=== PATIENT | male | born 1965 | race Caucasian/White ===

== ENCOUNTER 2018-01-04 16:57 | Outpatient (CLI) | END 2018-01-04 16:58 | disposition home or self-care (01) | LOC: FCC-LAB 16:57 | PROVIDERS: ATTEND General Practice | DX: D64.9 Anemia, unspecified (principal) | CPT/HCPCS: 82272 ==

== ENCOUNTER 2019-02-02 13:24 | Emergency (ER) ==
[2019-02-02 13:38] VITALS: TEMP 97.5; BMI 24.1
[2019-02-02] MEDS ORDERED: MORPHINE 4 MG/ML SYRINGE IM STA (13:39)
[2019-02-02] MEDS ORDERED: ZOFRAN 4 MG/2 ML IM STA (13:39)
[2019-02-02 14:36] VITALS: BP 116/79
--- NOTE | 2019-02-02 14:38 | CT ---
EXAM: CT of the chest without contrast History: Cough, left-sided chest pain. Technique: Multiplanar CT images through the thorax were obtained without the administration of IV c ontrast. Findings: Heart size is normal. No pericardial effusion. No thoracic aortic aneurysm. No pathologi braxton enlarged thoracic lymph nodes. No consolidation. No pleural fluid and no pneumothorax. Benig n 4 mm lymph node along the right minor fissure. Within the visualized upper abdomen, no acute findings. No acute osseous abnormalities. Impression: No acute cardiopulmonary process
--- NOTE | 2019-02-02 14:57 | ED.PDOC ---
General ED Provider: Dr. ALINE SOLER Chief Complaint: Non-specific Complaint Stated Complaint: coughed and felt sudden pain left chest wall. Mode of Arrival: Wheelchair Information Source: Patient [facility] Sepsis Protocol: For patient's 13 years and over: Temp is 96.8 and below OR 101 and greater Pulse >90 BPM Resp >20/minute Acutely Altered Mental Status Are patient's symptoms suggestive of a new infection, such as: -Pneumonia -Skin, Soft Tissue -Endocarditis -UTI -Bone, Joint Infection -Implantable Device -Acute Abdominal Infection -Wound Infection -Meningitis -Blood Stream Catheter Infection -Unknown Past Medical History - Social History Smoking Status: Never smoker Hx Substance Use: No Alcohol Screening: None Course - Course Orders, Labs, Meds: Lab Review 02/02/19 14:00 Urine Color Yellow Urine Clarity Clear Urine pH 5.5 Ur Specific [place] 1.025 Urine Protein Negative Urine Glucose (UA) Negative Urine Ketones Negative Urine Blood Negative Urine Nitrite Negative Urine Bilirubin Negative Urine Urobilinogen 0.2 Ur Leukocyte Esterase Negative Orders Category Date Time Status URINALYSIS C & S IF INDICATED Stat LAB 02/02/19 14:00 Completed Morphine Sulfate [Morphine 4 mg/ml Syringe] MEDS 02/02/19 13:39 Discontinued 4 mg IM ONCE STA Ondansetron HCl/Pf [Zofran 4 mg/2 ml] MEDS 02/02/19 13:39 Discontinued 4 mg IM ONCE STA CT CHEST W/O CONTRAST Stat RADS 02/02/19 13:38 Completed Medications Discontinued Medications Generic Name Dose Route Start Last Admin Trade Name Freq PRN Reason Stop Dose Admin Morphine Sulfate 4 mg 02/02/19 13:39 02/02/19 14:17 Morphine 4 Mg/Ml Syringe IM 02/02/19 13:40 4 mg ONCE STA Administration Ondansetron HCl 4 mg 02/02/19 13:39 02/02/19 14:18 Zofran 4 Mg/2 Ml IM 02/02/19 13:40 Not Given ONCE STA Vital Signs: Temp Pulse Resp BP Pulse Ox 02/02/19 14:36 116/79 02/02/19 13:25 97.5 F L 95 H 20 99/66 98 Departure - Departure Allergies/Adverse Reactions: Allergies hydromorphone HCl [From Dilaudid] Allergy (Verified 02/02/19 13:33) RASH latex Allergy (Verified 02/02/19 13:33) RASH/HIVES
--- NOTE | 2019-02-02 15:00 | ED.PDOC ---
General ED Provider: Dr. ALINE SOLER Chief Complaint: Non-specific Complaint Stated Complaint: sudden onset chest pain after a cough reproduceable by chest wall palpation . Time Seen by Physician: 13:24 (no cardiac type chest pain, had the onset after a cough.felt a pop left chest wall) Mode of Arrival: Wheelchair Information Source: Patient Exam Limitations: No limitations [facility] and T[facility] Documentation Reviewed and Agree: Yes Does patient meet sepsis criteria?: No (no exertional chest pain) System Inflammatory Response Syndrome: Not Applicable Sepsis Protocol: For patient's 13 years and over: Temp is 96.8 and below OR 101 and greater Pulse >90 BPM Resp >20/minute Acutely Altered Mental Status Are patient's symptoms suggestive of a new infection, such as: -Pneumonia -Skin, Soft Tissue -Endocarditis -UTI -Bone, Joint Infection -Implantable Device -Acute Abdominal Infection -Wound Infection -Meningitis -Blood Stream Catheter Infection -Unknown Trauma/Injury Complaint Exam - Trauma Complaint/Exam Location of Pain or Injury: Reports: Chest (wall after a cough) Mechanism of Injury: Reports: Other (coughing) Onset/Duration: 1 hrago Symptoms Are: Still present Timing of Treatment: Immediate Initial Severity: Moderate Current Severity: Moderate Aggravating: Reports: None Alleviating: Reports: None Associated Signs and Symptoms: Denies: LOC, Confusion, Memory loss, Lethargy, Vomiting, Bleeding, Bruising, Swelling, Extremity disuse, Painful respiration, Hoarseness, Dysphagia, Hemoptysis, Significant blood loss Penetrating Injury Risk Factors: Reports: None Related Surgical History: Reports: None Nexus Low Risk Criteria: No post-midline CS tender, No evidence of intoxicat., No Altered LOC, No focal neuro deficit, No distracting injuries Immobilization Removed Post Exam: No Glascow Coma Scale (see protocol): 15 Compartment Syndrome Risk Factors: Present: Pain Trauma Findings: Present: Perineal blood. Absent: [place] eyes, Hemotympanum, Nasal deformity, Dental tenderness, Dental injury, Dental malocclusion, Neck tenderness, Neck spasm, SubQ Air, Crepitus, Airway obstructed, Trachea displaced , Labored respirations, Decreased breath sounds, Muffled heart sounds, Weak pulses, Absent pulses, Abdominal distention, Pelvic tenderness, Pelvic instability Skin Findings: Present: Normal findings Differential Diagnoses: Fracture, Sprain, Strain Review of Systems - Review Of Systems Constitutional: Reports: No symptoms Eyes: Reports: No symptoms Ears, Nose, Mouth, Throat: Reports: No symptoms Respiratory: Reports: No symptoms Cardiac: Reports: No symptoms GI: Reports: No symptoms : Reports: No symptoms Musculoskeletal: Reports: Other (chest wall pain) Skin: Reports: No symptoms Neurological: Reports: No symptoms Endocrine: Reports: No symptoms Hematologic/Lymphatic: Reports: No symptoms All Other Systems: Reviewed and Negative Past Medical History - Past Medical History Previously Healthy: Yes Endocrine: Reports: None Cardiovascular: Reports: None Respiratory: Reports: None Hematological: Reports: None Gastrointestinal: Reports: None Genitourinary: Reports: None Neuro/Psych: Reports: None Musculoskeletal: Reports: None Cancer: Reports: None - Surgical History General Surgical History: Reports: None - Family History Family History: Reports: None - Social History Smoking Status: Never smoker Hx Substance Use: No Alcohol Screening: None Physical Exam - Physical Exam Appearance: Well-appearing, No pain distress, Well-nourished Eyes: ROBE, EOMI, Conjunctiva clear ENT: Ears normal, Nose normal, Oropharynx normal Respiratory: Airway patent, Breath sounds clear, Breath sounds equal, Respirations nonlabored Cardiovascular: RRR, Pulses normal, No rub, No murmur GI/: Soft, Nontender, No masses, Bowel sounds normal, No Organomegaly Musculoskeletal: Normal strength, ROM intact, No edema, No calf tenderness Skin: Warm, Dry, Normal color Neurological: Sensation intact, Motor intact, Reflexes intact, Cranial nerves intact, Alert, Oriented Psychiatric: Affect appropriate, Mood appropriate Critical Care Note - Critical Care Note Total Time (mins): 0 Course - Course Orders, Labs, Meds: Lab Review 02/02/19 14:00 Urine Color Yellow Urine Clarity Clear Urine pH 5.5 Ur Specific [place] 1.025 Urine Protein Negative Urine Glucose (UA) Negative Urine Ketones Negative Urine Blood Negative Urine Nitrite Negative Urine Bilirubin Negative Urine Urobilinogen 0.2 Ur Leukocyte Esterase Negative Orders Category Date Time Status URINALYSIS C & S IF INDICATED Stat LAB 02/02/19 14:00 Completed Morphine Sulfate [Morphine 4 mg/ml Syringe] MEDS 02/02/19 13:39 Discontinued 4 mg IM ONCE STA Ondansetron HCl/Pf [Zofran 4 mg/2 ml] MEDS 02/02/19 13:39 Discontinued 4 mg IM ONCE STA CT CHEST W/O CONTRAST Stat RADS 02/02/19 13:38 Completed Medications Discontinued Medications Generic Name Dose Route Start Last Admin Trade Name Jose GOMEZ Reason Stop Dose Admin Morphine Sulfate 4 mg 02/02/19 13:39 02/02/19 14:17 Morphine 4 Mg/Ml Syringe IM 02/02/19 13:40 4 mg ONCE STA Administration Ondansetron HCl 4 mg 02/02/19 13:39 02/02/19 14:18 Zofran 4 Mg/2 Ml IM 02/02/19 13:40 Not Given ONCE STA Vital Signs: Temp Pulse Resp BP Pulse Ox 02/02/19 14:36 116/79 02/02/19 13:25 97.5 F L 95 H 20 99/66 98 Departure - Departure Time of Disposition: 15:01 Disposition: HOME SELF-CARE Discharge Problem: Chest wall pain Instructions: Chest Wall Pain (ED), Noncardiac Chest Pain (ED), Thoracic Pain ( ED) Condition: Good Pt referred to PMD for follow-up: Yes IPMP verified?: No Additional Instructions: Please call your Family Physician as soon as possible to schedule a follow-up appointment. Allergies/Adverse Reactions: Allergies hydromorphone HCl [From Dilaudid] Allergy (Verified 02/02/19 13:33) RASH latex Allergy (Verified 02/02/19 13:33) RASH/HIVES
== END 2019-02-02 15:25 | disposition home or self-care (01) ==
LOC: ED 13:24
DX: R07.89 Other chest pain (principal); R05 Cough
CPT/HCPCS: 81001; 96372; 96374; 99283

== ENCOUNTER 2019-03-01 13:15 | Outpatient (CLI) ==
--- NOTE | 2019-03-01 14:14 | DI ---
EXAM: Six views of the cervical spine. History: Cervicalgia. Findings: No acute fracture or subluxation of the cervical spine. No prevertebral soft tissue swell ing. Predental space is not widened. Mild multilevel disc space narrowing with tiny osteophytes. T he oblique images demonstrate mild to moderate bilateral bony neural foraminal narrowing secondary to uncovertebral and facet hypertrophy. Impression: 1. No acute osseous abnormality of the cervical spine. 2. Mild to moderate degenerative changes
--- NOTE | 2019-03-01 14:15 | DI ---
EXAM: Five views of the lumbar spine. History: Lower back pain and lumbar radiculopathy. Findings: No acute fracture or subluxation of the lumbar spine. Grossly intact posterior fusion shruthi dware at L5-S1. The other disc space heights are relatively preserved. Impression: 1. No acute osseous abnormality of the lumbar spine. 2. Intact posterior fusion hardware at L5-S1
== END 2019-03-01 13:16 | disposition home or self-care (01) ==
LOC: RAD 13:15
PROVIDERS: ATTEND General Practice
DX: M54.2 Cervicalgia (principal); M54.5 Low back pain; M54.16 Radiculopathy, lumbar region